=== PATIENT | female | born 1980 | race Hispanic/Latino ===

== ENCOUNTER 2018-10-30 12:54 | Outpatient (CLI) | payer BC ==
--- NOTE | 2018-10-30 13:34 | MRI ---
MRI BRAIN WITHOUT CONTRAST: Date: 10/30/18 HISTORY: Headache, primarily exertional. Left-sided. FINDINGS: No restricted diffusion is seen. No evidence of infarct, hemorrhage, midline shift, or abnormal extra -axial fluid collections are seen. The ventricular size is normal and the basilar cisterns are patent . The visualized paranasal sinuses and mastoid air cells are well aerated. No tonsillar herniation is seen. A partially empty sella is present. IMPRESSION: No significant intracranial abnormalities are seen. POS: [facility]
== END 2018-10-30 12:55 | disposition home or self-care (01) ==
LOC: SCSMRI 12:54
PROVIDERS: ATTEND Family Medicine
DX: G44.84 Primary exertional headache (principal)
CPT/HCPCS: 70551